=== PATIENT | male | born 1970 | race Caucasian/White ===

== ENCOUNTER 2016-12-10 20:08 | Emergency (ER) | payer MEDICAID ==
[~2016-12-10] VITALS: Ht 190.5 cm; Wt 120.1 kg
[~2016-12-10 20:08] MED LIST: IBUP-238 PO; PERC5TAB12 PO
[2016-12-10 20:12] VITALS: BP 196/102; PULSE 58; RESP 18; TEMP 98.9; O2SAT 100
[2016-12-10] MEDS ORDERED: PROPARACAINE HCL 0.5% OPHT SOLN 15 ML BTL RIGHT EYE ONE (20:30)
--- NOTE | 2016-12-10 20:31 | PD ---
HPI Chief Complaint: Eye Problems/Injury Time Seen by Provider: 20:30 Travel History International Travel<30 days: No Contact w/Intl Traveler<30days: No Traveled to known affect area: No History of Present Illness HPI 46-year-old male presents to the emergency room for evaluation of right eye pain , redness, and tearing for the past several hours. Patient states around 5 hours ago, he was using the weed-kelli when a vine flung up around his glasses and struck him in the right eye. He showered afterward but denies flushing the in the shower or afterwards with saline. Since then, the eye has been getting continuously more painful and more red. Pain is improved with applying pressure and rubbing the eye. Now he has associated photophobia. Denies drainage. Patient does not wear contacts. 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,4,5,S1 DISC INJURIES.) Neurologic: No Psychiatric: No Reproductive: No Respiratory: No Immunizations Current: Yes Myocardial Infarction: No Radiation Therapy: No Renal Failure: No Seizures: No Sleep Apnea: No Thyroid Disease: No Ulcer: No Tetanus Vaccination: > 5 Years Influenza Vaccination: No Past Surgical History Abdominal Surgery: Yes (APPENDECTOMY) AICD: No Appendectomy: Yes Cholecystectomy: Yes Genitourinary Surgery: No Pacemaker: No Other Surgery: Yes (NASAL SURGERY IN JANUARY 2008) Social History Alcohol Use: Yes (Occ.) Tobacco Use: No Substance Use: No Allergies-Medications (Allergen,Severity, Reaction): Coded Allergies: No Known Allergies (Verified , 12/10/16) Reported Meds & Prescriptions Reported Meds & Active Scripts Active Erythromycin Opth Oint 5 Mg/Gm Oint 1 Applic RIGHT EYE Q6HR Review of Systems Except as stated in HPI: all other systems reviewed are Neg Physical Exam Narrative GENERAL: Well-nourished, well-developed male in no acute distress. Afebrile. Ambulatory. SKIN: Warm and dry. HEAD: Normocephalic. EYES: PERRL, EOMI, no discharge. No scleral icterus. Mild to moderate tearing. Moderate injection in the right. No chemosis. Fluorescein staining reveals a 2-3 square corneal abrasion at the 10:00 position of the right eye. Negative Stephy sign. No foreign body appreciated. Visual acuity is 20/40 in the right and 20/30 in the left. Mild to moderate photophobia. Data Data Last Documented VS Vital Signs Date Time Temp Pulse Resp B/P Pulse Ox O2 Delivery O2 Flow Rate FiO2 12/10/16 20:12 98.9 58 18 196/102 100 Orders Proparacaine 0.5% Opth Soln (Alcaine 0.5 (12/10/16 20:30) MDM Medical Decision Making Medical Screen Exam Complete: Yes Emergency Medical Condition: Yes Medical Record Reviewed: Yes Differential Diagnosis Corneal abrasion versus ulceration versus foreign body Narrative Course 46-year-old male presents to the emergency room for evaluation of right eye pain , redness, and foreign body sensation for the past several hours. Patient was scratched by a vine 5 hours prior to arrival. He did not flush his eye. Physical exam reveals PERRL, EOMI, no discharge. Moderate injection in the right. Fluorescein staining reveals a 2-3 square corneal abrasion at the 10:00 position of the right eye. Negative Stephy sign. No foreign body appreciated. Visual acuity is 20/40 in the right and 20/30 in the left. Mild to moderate photophobia. After administering proparacaine, patient reports marked improvement in visual acuity. He'll be discharged with prescription for erythromycin eye ointment and told to follow up with a lodging facilities attendant if symptoms persist after 3 days. Told to return sooner for worsening symptoms. He understands and agrees to this plan. Patient has history of hypertension. He was counseled on hypertension management told to follow up with the community [facility] for long-term care/management. Diagnosis Primary Impression: Injury of conjunctiva and corneal abrasion of right eye without foreign body Qualified Code: S05.01XA - Injury of conjunctiva and corneal abrasion of right eye without foreign body, initial encounter Referrals: [facility] Patient Instructions: Corneal Abrasion (ED), General Instructions Additional Instructions: Rest and drink plenty of fluids. Do not rub your eye as this will worsen your symptoms. Use ointment as directed, for 3-5 days. Follow-up with an lodging facilities attendant. Return to the emergency room for worsening symptoms. Med/Other Pt SpecificInfo: Prescription(s) given Scripts Erythromycin Opth Oint 5 Mg/Gm Oint1 Applic RIGHT EYE Q6HR #1 TUBE Ref 0 Prov:Raysa Schumacher MD 12/10/16 Disposition: 01 DISCHARGE HOME Condition: Stable Fatuma Felix Dec 10, 2016 20:31
[2016-12-10] MEDS ORDERED: ERYTOIN10 RIGHT EYE (20:45)
== END 2016-12-10 21:05 | disposition home or self-care (01) ==
LOC: PHEFT 20:08
DX: S05.01XA Injury of conjunctiva and corneal abrasion without foreign body, right eye, initial encounter (principal); I10 Essential (primary) hypertension; Y93.H2 Activity, gardening and landscaping
CPT/HCPCS: 99283

== ENCOUNTER 2017-09-07 22:31 | Observation (INO) | payer MEDICAID ==
[~2017-09-07] VITALS: Ht 190.5 cm; Wt 125.0 kg
[2017-09-07] VITALS (9 sets, daily range): BP systolic 140–203; BP diastolic 60–110; PULSE 54–68; RESP 16–18; TEMP 98; O2SAT 95–100
[~2017-09-07 22:31] MED LIST changes: +ERYTOIN10 RIGHT EYE; -IBUP-238 PO; -PERC5TAB12 PO
[2017-09-07] MEDS ORDERED: LISI10TA3 PO (22:44)
[2017-09-07] MEDS ORDERED: ASPIRIN 325 MG TAB PO ONE (22:45)
[2017-09-07] MEDS ORDERED: SODIUM CHLORIDE 0.9% FLUSH 10 ML FLUSH IVF PRN (22:45)
[2017-09-07] MEDS ORDERED: MORPHINE SULFATE 4 MG/ML INJ IV PUSH ONE (22:45)
[2017-09-07] MEDS ORDERED: NITROGLYCERIN 2% OINT 1 GM PACKET TOP ONE (22:45)
[2017-09-07] MEDS ORDERED: NITROGLYCERIN 0.4 MG SL 25 TABS/BTL SL ONE (22:45)
[2017-09-07] MEDS ORDERED: ONDANSETRON HCL 4 MG/2 ML VIAL IV PUSH ONE (22:45)
--- NOTE | 2017-09-07 22:48 | PD ---
HPI Chief Complaint: Chest Pain Time Seen by Provider: 22:41 Travel History International Travel<30 days: No Contact w/Intl Traveler<30days: No Traveled to known affect area: No History of Present Illness HPI This 47-year-old male is complaining of precordial chest pain. Says the pain started around 5:00. Since it started this coming and going. It woke him a few minutes and then subside. He has had pain like this in the past but has not been evaluated for it. He says the last time he had. He took a shower at home and seemed to get worse in the shower. He does feel a little bit short of breath. He does have some pain in his left arm. He says it is a pressure type of pain. He says he feels like an elephant is sitting on his chest. He does occasionally get exertional chest pain. He has a history of hypertension and takes lisinopril once daily. He is does not smoke. There is no family history of heart disease. He has had an appendectomy and cholecystectomy as well as a back fusion. He does not take aspirin. 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,4,5,S1 DISC INJURIES.) Neurologic: No Psychiatric: No Reproductive: No Respiratory: No Immunizations Current: Yes Myocardial Infarction: No Radiation Therapy: No Renal Failure: No Seizures: No Sleep Apnea: No Thyroid Disease: No Ulcer: No Past Surgical History Abdominal Surgery: Yes (APPENDECTOMY) AICD: No Appendectomy: Yes Cholecystectomy: Yes Genitourinary Surgery: No Pacemaker: No Other Surgery: Yes (NASAL SURGERY IN JANUARY 2008) Social History Alcohol Use: Yes (Occ.) Tobacco Use: No Substance Use: No Allergies-Medications (Allergen,Severity, Reaction): Coded Allergies: No Known Allergies (Verified , 12/10/16) Reported Meds & Prescriptions Reported Meds & Active Scripts Active Reported Lisinopril 10 Mg Tab 10 Mg PO DAILY Review of Systems General / Constitutional: No: Fever, Chills Eyes: No: Diploplia, Blurred Vision HENT: No: Headaches, Vertigo Cardiovascular: No: Chest Pain or Discomfort, Palpitations Respiratory: No: Cough, Shortness of Breath Gastrointestinal: No: Nausea, Vomiting Genitourinary: No: Urgency, Frequency Musculoskeletal: No: Myalgias, Arthralgias Skin: No Rash, No Itching Neurologic: No: Weakness, Dizziness Psychiatric: No: Anxiety, Depression Endocrine: No: Heat Intolerance, Cold Intolerance Hematologic/Lymphatic: No: Easy Bruising Physical Exam Narrative GENERAL: Well-developed male SKIN: Focused skin assessment warm/dry. HEAD: Atraumatic. Normocephalic. EYES: Pupils equal and round. No scleral icterus. No injection or drainage. ENT: No nasal bleeding or discharge. Mucous membranes pink and moist. NECK: Trachea midline. No JVD. CARDIOVASCULAR: Regular rate and rhythm. No murmur appreciated. RESPIRATORY: No accessory muscle use. Clear to auscultation. Breath sounds equal bilaterally. GASTROINTESTINAL: Abdomen soft, non-tender, nondistended. Hepatic and splenic margins not palpable. MUSCULOSKELETAL: No obvious deformities. No clubbing. No cyanosis. No edema. NEUROLOGICAL: Awake and alert. No obvious cranial nerve deficits. Motor grossly within normal limits. Normal speech. PSYCHIATRIC: Appropriate mood and affect; insight and judgment normal. Data Data Last Documented VS Vital Signs Date Time Temp Pulse Resp B/P (MAP) Pulse Ox O2 Delivery O2 Flow Rate FiO2 09/07/17 23:15 65 18 167/84 (111) 100 Room Air 09/07/17 22:46 98.0 Orders Orders Basic Metabolic Panel (Bmp) (09/07/17 22:41) Complete Blood Count With Diff (09/07/17 22:41) Magnesium (Mg) (09/07/17 22:41) Prothrombin Time / Inr (Pt) (09/07/17 22:41) Act Partial Throm Time (Ptt) (09/07/17 22:41) Troponin I (09/07/17 22:41) Chest, Single Ap (09/07/17 22:41) Ecg Monitoring (09/07/17 22:41) Bilateral Bp Monitoring (09/07/17 22:41) Iv Access Insert/Monitor (09/07/17 22:41) Oximetry (09/07/17 22:41) Oxygen Administration (09/07/17 22:41) Aspirin (Aspirin) (09/07/17 22:45) Morphine Inj (Morphine Inj) (09/07/17 22:45) Nitroglycerin 2% Oint (Nitroglycerin 2% (09/07/17 22:45) Sodium Chloride 0.9% Flush (Ns Flush) (09/07/17 22:45) Nitroglycerin Sl (Nitrostat Sl) (09/07/17 22:45) Ondansetron Inj (Zofran Inj) (09/07/17 22:45) Morphine Inj (Morphine Inj) (09/07/17 23:30) Labs Laboratory Tests Test 09/07/17 22:10 White Blood Count 9.1 TH/MM3 Red Blood Count 5.33 MIL/MM3 Hemoglobin 15.0 GM/DL Hematocrit 45.5 % Mean Corpuscular Volume 85.4 FL Mean Corpuscular Hemoglobin 28.2 PG Mean Corpuscular Hemoglobin Concent 33.0 % Red Cell Distribution Width 12.2 % Platelet Count 240 TH/MM3 Mean Platelet Volume 8.4 FL Neutrophils (%) (Auto) 55.6 % Lymphocytes (%) (Auto) 30.0 % Monocytes (%) (Auto) 7.9 % Eosinophils (%) (Auto) 5.7 % Basophils (%) (Auto) 0.8 % Neutrophils # (Auto) 5.1 TH/MM3 Lymphocytes # (Auto) 2.7 TH/MM3 Monocytes # (Auto) 0.7 TH/MM3 Eosinophils # (Auto) 0.5 TH/MM3 Basophils # (Auto) 0.1 TH/MM3 CBC Comment DIFF FINAL Differential Comment Prothrombin Time 10.4 SEC Prothromb Time International Ratio 0.9 RATIO Activated Partial Thromboplast Time 27.0 SEC Blood Urea Nitrogen 21 MG/DL Creatinine 1.40 MG/DL Random Glucose 100 MG/DL Calcium Level 8.7 MG/DL Magnesium Level 2.3 MG/DL Sodium Level 138 MEQ/L Potassium Level 3.9 MEQ/L Chloride Level 104 MEQ/L Carbon Dioxide Level 28.7 MEQ/L Anion Gap 5 MEQ/L Estimat Glomerular Filtration Rate 55 ML/MIN Troponin I LESS THAN 0.02 NG/ML MDM Medical Decision Making Medical Screen Exam Complete: Yes Emergency Medical Condition: Yes Medical Record Reviewed: Yes Differential Diagnosis Differential includes unstable angina, coronary artery disease, GERD, hypertension Narrative Course This gentleman'S pain is very concerning for coronary artery disease. His EKG shows normal sinus rhythm. He has been given aspirin, Nitropaste and morphine. His blood pressure is initially quite elevated about 200/100. He was given nitroglycerin and nitro paste his blood pressures come down. He did have an episode of for recurrence of pain. The pain was on the left side was quite severe. It lasted for about a minute. Repeat EKG done during this pain is normal. His troponin is normal. He will be admitted to the chest pain center Diagnosis Primary Impression: Chest pain Admitting Information Admitting Physician Requests: Observation Santosh Mancilla MD Sep 07, 2017 22:48
[2017-09-07 22:55] LABS: AUTOMATED NEUTROPHIL # 5.1 TH/MM3 (1.8-7.7); BASOPHIL # 0.1 TH/MM3 (0-0.2); BASOPHIL % 0.8 % (0.0-2.0); EOSINOPHIL # 0.5 TH/MM3 (0-0.4); EOSINOPHIL % 5.7 % (0.0-4.0); HEMATOCRIT 45.5 % (39.0-51.0); HEMO FLAGS DIFF FINAL; LYMPHOCYTE # 2.7 TH/MM3 (1.0-4.8); MEAN CELL VOLUME 85.4 FL (80.0-100.0); MEAN CORPUSCULAR HEMOGLOBIN 28.2 PG (27.0-34.0); MONO % 7.9 % (0.0-8.0); NEUT % 55.6 % (16.0-70.0); PLATELET COUNT 240 TH/MM3 (150-450); RED BLOOD COUNT 5.33 MIL/MM3 (4.50-5.90); RED CELL DISTRIBUTION WIDTH 12.2 % (11.6-17.2); WHITE BLOOD COUNT 9.1 TH/MM3 (4.0-11.0)
--- NOTE | 2017-09-07 23:03 | RADRPT ---
EXAM DATE/TIME: 09/07/2017 22:50 [facility] COMPARISON: No previous studies available for comparison. INDICATIONS : Chest pain, shortness of breath. MEDICAL HISTORY : Hypertension. SURGICAL HISTORY : None. ENCOUNTER: Initial ACUITY: 1 day PAIN SCORE: 3/10 LOCATION: Bilateral chest FINDINGS: A single view of the chest demonstrates the lungs to be symmetrically aerated without evidence of mas s, infiltrate or effusion. The cardiomediastinal contours are unremarkable. Osseous structures are intact. CONCLUSION: No acute disease. Kendall Davis MD on September 07, 2017 at 23:02 Board Certified Radiologist. This report was verified electronically.
[2017-09-07 23:12] LABS: CHLORIDE 104 MEQ/L (98-107); POTASSIUM 3.9 MEQ/L (3.5-5.1); SODIUM (NA) 138 MEQ/L (136-145)
[2017-09-07 23:14] LABS: INTERNATIONAL NORMALIZED RATIO 0.9 RATIO; PROTHROMBIN TIME - PATIENT 10.4 SEC (9.8-11.6)
[2017-09-07 23:15] LABS: ANION GAP 5 MEQ/L (5-15); BICARBONATE 28.7 MEQ/L (21.0-32.0); BLOOD UREA NITROGEN 21 MG/DL (7-18); MAGNESIUM 2.3 MG/DL (1.5-2.5)
[2017-09-07 23:18] LABS: GLOMERULAR FILTRATION RATE 55 ML/MIN (>89)
[2017-09-07] MEDS ORDERED: MORPHINE SULFATE 8 MG/ML INJ IV PUSH ONE (23:30)
[2017-09-08] VITALS (7 sets, daily range): BP systolic 124–139; BP diastolic 57–83; PULSE 45–53; RESP 18–19; TEMP 96.1–98; O2SAT 96–99
[2017-09-08] MEDS ORDERED: ACETAMINOPHEN 325 MG TAB PO ONE ×2 (02:00→09:00)
[2017-09-08] MEDS ORDERED: ACETAMINOPHEN 500 MG CPLT PO PRN (02:15)
[2017-09-08] MEDS ORDERED: ACETAMINOPHEN/HYDROcodone 325 MG/7.5 MG TAB PO PRN (02:15)
[2017-09-08] MEDS ORDERED: MORPHINE SULFATE 4 MG/ML INJ IV PUSH PRN (02:15)
[2017-09-08] MEDS ORDERED: NITROGLYCERIN 0.4 MG SL 25 TABS/BTL SL PRN (02:15)
[2017-09-08] MEDS ORDERED: SODIUM CHLORIDE 0.9% FLUSH 10 ML FLUSH IV FLUSH PRN (02:15)
[2017-09-08] MEDS ORDERED: ONDANSETRON HCL 4 MG/2 ML VIAL IV PUSH PRN (02:15)
[2017-09-08 03:14] LABS: CREATINE KINASE 435 U/L (39-308)
[2017-09-08 03:26] LABS: CKMB 4.5 NG/ML (0.5-3.6)
[2017-09-08 06:47] LABS: CREATINE KINASE 389 U/L (39-308)
[2017-09-08 07:00] LABS: CKMB 4.6 NG/ML (0.5-3.6)
[2017-09-08 08:18] LABS: POTASSIUM 4.1 MEQ/L (3.5-5.1)
[2017-09-08 08:20] LABS: BICARBONATE 27.4 MEQ/L (21.0-32.0)
[2017-09-08] MEDS ORDERED: SODIUM CHLORIDE 0.9% FLUSH 10 ML FLUSH IV FLUSH SCH (09:00)
[2017-09-08] MEDS ORDERED: ASPIRIN 325 MG TAB PO SCH (09:00)
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
[2017-09-08] MEDS: SODIUM CHLOR 0.9% 1000 ML INJ 1,000 ML IV SCH ×2 (09:30→10:55)
[2017-09-08] MEDS ORDERED: cloNIDine HCL 0.1 MG TAB PO PRN (10:15)
--- NOTE | 2017-09-08 12:15 | RADRPT ---
EXAM DATE/TIME: 09/08/2017 10:45 [facility] COMPARISON: No previous studies available for comparison. INDICATIONS : Substernal chest pain with dyspnea. Angina. DOSE: 35 mCi Tc99m Myoview at stress. 11 mCi Tc99m Myoview at rest. 0.4 mg Lexiscan STRESS SYMPTOMS: Dyspnea. EJECTION FRACTION: 42% MEDICAL HISTORY : Hypertension. Stroke SURGICAL HISTORY : Appendectomy. Cholecystectomy. ENCOUNTER: Initial ACUITY: 1 day PAIN SCALE: 8/10 LOCATION: Substernal chest TECHNIQUE: The patient underwent pharmacologic stress with infusion of prescribed dose. Continuous ECG tracing was monitored during stress. Gated SPECT imaging was performed after stress and conventional SPECT i maging was performed at rest. The examination was performed on a SPECT/CT scanner, both attenuation and non-corrected datasets were reviewed. FINDINGS: DISTRIBUTION: The maximum perfused segment at stress is in the anterior lateral wall. PERFUSION STUDY: The pattern of perfusion at stress suggests a small area of perfusion defect at the junction of the l ateral and inferior egan with questionable redistribution GATED STUDY: There is intact wall motion and thickening without hypokinetic or dyskinetic segments. CONCLUSION: Ejection fraction diminished at 42%. Suggestion of a small area of perfusion defect at str ess at the junction of the inferior and lateral wall with questionable minimal redistribution. RISK CATEGORY: Intermediate (1-3% Annual Mortality Rate) Tristen Bowen MD on September 08, 2017 at 12:11 Board Certified Radiologist. This report was verified electronically.
[2017-09-08] MEDS ORDERED: HEPARIN-NS/PF INJ 1,000 ML ONE (16:20)
[2017-09-08 16:37] LABS: HDL CHOLESTEROL 40.1 MG/DL (40.0-60.0)
[2017-09-08] MEDS ORDERED: VERAPAMIL HCL 5 MG/2 ML VIAL ONE (16:39)
[2017-09-08] MEDS ORDERED: NITROGLYCERIN INJ 5 ML ONE (16:39)
[2017-09-08] MEDS ORDERED: MIDAZOLAM HCL 2 MG/2 ML VIAL ONE (16:39)
[2017-09-08] MEDS ORDERED: HEPARIN SODIUM - IV 10,000 UNITS/10 ML VIAL ONE (16:40)
--- NOTE | 2017-09-08 16:55 | MB ---
cc: SANJEEV BAUMAN DATE OF CONSULTATION 09/08/2017 INDICATION Chest pain. HISTORY OF THE PRESENT ILLNESS He is a 47-year-old gentleman with a history of hypertension. No prior history of heart disease. He presented to the emergency room with substernal chest pain radiating towards his left shoulder associated with diaphoresis, primarily initially occurred with exertion. He had recurrence of the episode. He came into [facility]. There he was found to have no significant ischemic change in the EKG and troponin was negative. He underwent stress test which was intermediate risk and transferred over for cardiac catheterization to the Main [facility]. PAST MEDICAL HISTORY 1. Hypertension. 2. Syncope. 3. Disk injury. MEDICATIONS Lisinopril. ALLERGIES NO KNOWN DRUG ALLERGIES. FAMILY HISTORY Denies any family history of early coronary artery disease or sudden cardia . SOCIAL HISTORY Denies any alcohol, tobacco or drug use. REVIEW OF SYSTEMS 12-point review of system was performed and negative unless otherwise noted in the history of present illness. PHYSICAL EXAMINATION VITAL SIGNS: Temperature is 98, pulse 52, blood pressure 124/81 mmHg. GENERAL: Alert and oriented times three in no acute distress. HEENT: Exam shows pupils reactive to light and accommodation. Extraocular movements are intact. NECK: No elevation in the jugular venous distention. No thyromegaly. No lymphadenopathy. No carotid bruits. LUNGS: Clear to auscultation bilaterally. CARDIOVASCULAR: Regular rate and rhythm without murmurs, rubs, or gallops. ABDOMEN: Nontender. Nondistended. Good bowel sounds. No hepatosplenomegaly. EXTREMITIES: Show no clubbing, cyanosis or edema. Good peripheral pulses. NEUROLOGIC: Cranial nerves intact. Motor strength is grossly intact. LABORATORY DATA WBC 9.1, hemoglobin 15, platelet count 240. INR is 0.9. Sodium 138, potassium 4.1. Troponin negative times two. ASSESSMENT 1. Unstable angina. 2. Hypertension. PLAN The patient has somewhat suggestive symptoms but also now has intermediate risk stress test with moderate perfusion abnormality. He is sent over for cardiac catheterization. Risks, benefits and alternatives discussed with the patient. He is agreeable. We will proceed. MD CAMDEN Chanel/SOBEIDA /4:29 PM /4:36 PM
--- NOTE | 2017-09-08 17:25 | CATHPROC ---
[facility] HIS Report Study Information Study Number Admission Scheduled Start Study Start [id number] Sep 07 2017 11:45PM 09/08/2017 Sep 08 2017 4:16PM [place] Service Cardiac Catheterization Admit Source Facility Department Other [facility] - [employer] Physician and Clinical Staff Initial Abraham Shelby Depot ManagerAmbika Richards,RN Depot Manager Mckenzie Thomason,JESSICA Recorder Josfe Marino RCIS(BS) Scrub Durga, Kasey,SOUND TESTER TECH2 Procedures Performed Procedure Location (Site) Vessel Name Angiogram LV LV Ventricle Coronary Angiograms LCA Left Coronary Coronary Angiograms RCA Right Coronary L Heart Cath Wire insertion Radial (right) Radial Art. Equipment Time Putaway Driver Description Size Mfg Part Number Used/Scraped TRANSDUCER, TRUWAVE [id number] 16:29 BARNARD RODRIGEZ * Used W/STOCKCOCK *[id number] *[id number] *[id number] PIGTAIL ANG. 145 INFINITI [id number] CATHETER *[id number] 16:29 [employer] PACK, CCL CUSTOM * Used *[id number] 16:29 [employer] SUPPORT, ARTERIAL ADULT [id number] *[id number] Used [id number] 16:29 SpotRight PACER PEN, SKIN DUAL W/ RULER * Used *[id number] BAND, RADIAL COMPRESSION TR [id number] 17:07 Gridcentric 29CM Used LARGE 29 *[id number] SHEATH, FR6 RADIAL PRELUDE 16:29 Gridcentric FR 6 [id number] Used EASE 11CM [id number] 16:29 Gridcentric WIRE, EXCHANGE 260CM 3MMJ 260CM Used *[id number] 17:04 NAMIC TUBING, HIGH PRESSURE 48" 48" Used *[id number] 17:03 NAMIC TUBING, HIGH PRESSURE 48" 48" Used *[id number] 16:29 NYCOMED OMNIPAQUE, 350 MG, 150ML 150ML [id number] Used [id number] 16:29 Addy BLANKET,WARM AIR CCL * Used *[id number] History: Allergies Allergy Reaction No Known Allergies History: Risk Factors Family History of Hypertension Dyslipidemia Previous MA Previous Heart Failure Premature CAD Yes Yes No No No Prior Valve Prior PCI Prior CABG Surgery No No No Cerebrovascular Peripheral Artery Chronic Lung On Dialysis Diabetes Disease Disease Disease No No No No No History: Symptoms/Diagnosis Selection Items Chest pain History: Stress Tests Stress or Imaging Studies Performed Yes Standard Exercise Stress Test No Stress Test SPECT Stress Test SPECT Result Stress Test SPECT Ischemia Risk/Extent Yes Positive Intermediate Stress Test CMR No Cardiac CTA Coronary Calcium Score No No History: Other Current Smoker No Labs Hgb (g/dl) Hct (%) RBC (MIL/MM3) WBC (l/cumm) Platelets (thousands) 11.60-17.00 35.00-51.00 4.00-5.90 4.00-11.00 150.00-450.00 15.0 45 5.3 9.1 240 Glucose (mg/dl) BUN (mg/dl) Creatinine (mg/dl) BUN:Creatinine (1:x) 74.00-106.00 7.00-18.00 0.50-1.30 10.00-20.00 106 21 1.3 16.2 Na (meq/l) K (meq/l) 136.00-145.00 3.50-5.10 138 3.9 PT (sec) 9.80-11.60 10.4 Troponin I (ng/ml) CPK (u/l) CPK-MB (ng/ML) 0.02-0.05 26.00-308.00 0.50-3.60 0.02 435 4.6 Medication Medication Total Dose (Bolus/Oral) Medication Total Dosage/Unit 1% XYLOCAINE 20 mL FENTANYL 50 mcg HEPARIN 5000 units NTG (IC) 200 mcg VERSED 2 mg Medications (Bolus/Oral) Medication Time Given Dosage/Unit Administered By Reason VERSED 09/08/2017 4:49:35 PM 2 mg Ambika Matta 2 mg VERSED given in lab by Ambika Matta RN via Peripheral IV. FENTANYL 09/08/2017 4:51:07 PM 50 mcg Yani Mattat 50 mcg FENTANYL given in lab by Ambika Matta RN via Peripheral IV. 1% XYLOCAINE 09/08/2017 4:52:31 PM 20 mL Abraham Flores 20 mL 1% XYLOCAINE given in lab by Abraham Flores in Right Wrist via Subcutaneous. NTG (IC) 09/08/2017 4:54:57 PM 200 mcg Ambika Matta 200 mcg NTG (IC) given in lab by Ambika Matta, JESSICA via Intra-coronary. HEPARIN 09/08/2017 4:55:37 PM 5000 units Ambika Matta 5000 units HEPARIN given in lab by Ambika Matta RN via Peripheral IV. Medication (Drip) Medication Time Given Dosage/Unit Concentration/Unit Diluent (ml) Solution IV Solutions 09/08/2017 4:30:19 PM 50 mL (IV) 500 NaCl .9 Patient arrived on IV Solutions via Peripheral IV. Pump/Drip Flow using NaCl .9. Initial Case Assessment Cardiovascular HR 65 Edema Present Skin color Skin None Normal Warm Dry Circulatory - Right Pulses Dorsalis Pedis Femoral Radial 2 2 2 Scale (0,1,2,3,4,d) Circulatory - Left Pulses Dorsalis Pedis Femoral Radial 2 2 2 Scale (0,1,2,3,4,d) Circulatory - Lower Extremities Color Lower Right Color Lower Left Normal Normal Neurological State Oriented to time-place- Alert Moves all extremities person Respiration - General Respiration Rate O2 (lpm) (B/min) 10 0 Chronological Log Time Study Chronological Log 16:28:52 Patient arrived via Bed. 16:28:53 Patient Name, D.O.B, / Armband Verified By R.N. 16:28:54 Consent signed by the physician and the patient and verified by the [employer] staff. 16:29:03 Verbal Stimulation=2 Physical Stimulation=2 Airway=2 Respiration=2 TOTAL=8. (0=absent, 1=li mited, 2=present) 16:29:57 A # 20 IV was noted in the Antecubital (left). Grade = 0 16:30:19 Patient arrived on IV Solutions via Peripheral IV. Pump/Drip Flow using NaCl .9. 16:31:15 History and physical on the chart or being dictated. Assessment: Initial Case, HR=65 BPM, Edema=None, Color=Normal, Skin = Warm, Dry Right Pulses: Jv Ped=2, Femoral=2, Radial=2 Left Pulses: Jv Ped=2, Femoral=2, Radial=2 16:31:35 Lower Right Extremities: Color=Normal Lower Left Extremities: Color=Normal Neurological: State=Alert, Ox3, NASH Respiration: Resp=10 B/min, O2=0 lpm Vitals capture started with the following parameters, Patient=Adult, Interval=5 min, Initial Pr ldefcp=530 mmHg, 16:35:29 Deflation Rate=5 mmHg, Cuff placed on Right Arm 16:36:55 HR=56 bpm, KCXZ=693/111 mmhg, BqI5=134.0 %, Resp=20 B/min, Pain=0, Libia=10, Gillis=2 16:37:45 Allens test performed on the right radial and ulnar artery. 16:39:20 Right Radial and groin(s) prepped with 2% chlorhexidine, and draped after a 3 min. waiting time. 16:40:56 MD arrived. 16:41:24 HR=64 bpm, VQEA=927/106 mmhg, XvW4=910.0 %, Resp=22 B/min, Pain=0, Libia=10, Gillis=2 16:42:58 Pressure channel 1 zeroed. 16:43:06 Reference ECG taken 16:46:55 HR=61 bpm, WCSE=440/100 mmhg, JjN5=610.0 %, Resp=20 B/min, Pain=0, Libia=10, Gillis=2 16:49:35 2 mg VERSED given in lab by Ambika Matta RN via Peripheral IV. 16:51:07 50 mcg FENTANYL given in lab by Ambika Matta RN via Peripheral IV. 16:51:18 HR=69 bpm, MQCH=834/89 mmhg, SpO2=97.0 %, Resp=19 B/min, Pain=0, Libia=10, Gillis=2 Time Out. Correct patient, correct procedure, correct physician, power injector not loaded with contrast with surgical 16:51:40 team present. Time Out Concurred by MD and individual staff in procedure. 16:51:41 Case Start 16:52:31 20 mL 1% XYLOCAINE given in lab by Abraham Flores in Right Wrist via Subcutaneous. 16:53:27 Access site was Brachial Artery. 16:54:57 200 mcg NTG (IC) given in lab by Ambika Matta, JESSICA via Intra-coronary. 16:55:37 5000 units HEPARIN given in lab by Ambika Matta, JESSICA via Peripheral IV. 16:56:11 HR=65 bpm, DDXI=183/98 mmhg, SpO2=97.0 %, Resp=18 B/min, Pain=0, Libia=10, Gillis=2 A SHEATH, FR6 RADIAL PRELUDE EASE 11CM FR 6 was advanced into the Radial (right) using the Perc utaneous 16:57:54 technique. A JR 5.0 INFINITI CATHETER FR 6 was advanced over a wire. OMNIPAQUE, 350 MG, 150ML 150ML was us ed for 16:58:48 injections. 16:59:12 A WIRE, EXCHANGE 260CM 3MMJ 260CM was inserted via Radial (right). 16:59:35 The RCA was injected and visualized at various angles. OMNIPAQUE, 350 MG, 150ML 150ML used . 17:00:04 Catheter was removed A JL 3.5 INFINITI CATHETER FR 6 was advanced over a wire. OMNIPAQUE, 350 MG, 150ML 150ML was us ed for 17:00:08 injections. 17:00:32 injector was loaded by Ambika Matta RN 17:01:14 SQ=131 bpm, QALI=972/96 mmhg, SpO2=96.0 %, Resp=16 B/min, Pain=0, Libia=10, Gillis=2 Recorded Pressure: LV, LZ=769, Condition=Condition 1 17:01:21 (Left Ventricle) LV 133/51/41 Recorded Pressure: Ao, HR=67, Condition=Condition 1 17:02:04 (Aorta) Ao 128/79/101 17:02:54 The LCA was injected and visualized at various angles. OMNIPAQUE, 350 MG, 150ML 150ML use d. After removing the current catheter a PIGTAIL ANG. 145 INFINITI CATHETER FR 6 was advanced ove r a WIRE, 17:04:38 EXCHANGE 260CM 3MMJ 260CM. 17:06:15 HR=62 bpm, YFAF=883/90 mmhg, SpO2=97.0 %, Resp=29 B/min, Pain=0, Libia=10, Gillis=2 17:08:27 Catheter was removed A JL 3.5 INFINITI CATHETER FR 6 was advanced over a wire. OMNIPAQUE, 350 MG, 150ML 150ML was u sed for 17:09:40 injections. After removing the current catheter a PIGTAIL ANG. 145 INFINITI CATHETER FR 6 was advanced ove r a WIRE, 17:11:20 EXCHANGE 260CM 3MMJ 260CM. 17:11:49 HR=69 bpm, ULPS=851/86 mmhg, SpO2=97.0 %, Resp=30 B/min, Pain=0, Libia=10, Gillis=2 17:12:03 The LV was injected at 10 cc/sec for a total of 30. OMNIPAQUE, 350 MG, 150ML 150ML used. 17:13:17 Catheter was removed 17:13:39 Case End Radial Compression Device Used. 15 mLs of air placed in BAND, RADIAL COMPRESSION TR LARGE 29 2 9CM. Affected 17:14:21 hand 98 % O2 saturation. 17:16:21 HR=62 bpm, XLTP=309/82 mmhg, SpO2=99.0 %, Resp=22 B/min, Pain=0, Libia=10, Gillis=2 17:24:09 No case complications noted. 17:24:21 A Left Heart Cath was performed. 17:24:23 Patient moved to [facility] End Study - Contrast Media Used In Study Contrast Total Opened (mL) Total Used (mL) Total Wasted (mL) Omnipaque 80 80 0 End Study - Maximum Contrast Load Max Contrast Load (mL) 480.8 End Study - Radiation Exposure Fluoro Time (minutes) 6.2 End Study - Patient Disposition Complications Transferred To Telemetry Bed
[2017-09-08] MEDS ORDERED: MISC INFORMATION XX ONE (17:30)
[2017-09-08] MEDS ORDERED: BACITRACIN OINT 0.9 GM PKT TOP ONE (17:30)
[2017-09-08] MEDS ORDERED: LISI-515 PO (18:08)
--- NOTE | 2017-09-08 18:09 | HHI.DCPOC ---
Discharge Care Plan Diagnosis: (1) Chest pain (2) Hypertensive urgency (3) DARELL (acute kidney injury) (4) Elevated CK (5) Headache Your Health Problems Are: Chest Pain Goals to Promote Your Health * To prevent worsening of your condition and complications * To maintain your health at the optimal level Directions to Meet Your Goals Take your medications as prescribed Follow your dietary instruction Follow activity as directed Keep your appointments as scheduled Take your immunizations and boosters as scheduled If your symptoms worsen call your PCP, if no PCP go to Urgent Care Center or Emergency Room Smoking is Dangerous to Your Health. Avoid second hand smoke Call the 24-hour hour crisis hotline for domestic abuse at [facility] Dennison Sep 08, 2017 18:09
--- NOTE | 2017-09-08 18:29 | MA ---
cc: SANJEEV BAUMAN DATE 09/08/2017 PROCEDURES PERFORMED 1. Fluoroscopy with interpretation. 2. Coronary angiography. 3. Left heart catheterization. 4. Left ventriculography. METHOD Risks, benefits and alternatives discussed with the patient. The patient understood and consented to the procedure. PROCEDURE DETAILS The patient brought to the catheterization lab and placed on the catheterization table. The right wrist was prepped and draped in sterile fashion. The right wrist was anesthetized with 2% Lidocaine. The right radial artery was cannulated and a 6 Belarusian 7 cm sheath was placed without difficulty. LEFT HEART CATHETERIZATION Intraventricular hemodynamics measured at 135/10 mmHg. Left ventricular end diastolic pressure 10 mmHg. There was no significant aortic stenosis by transaortic valvular pullback gradient. LEFT VENTRICULOGRAPHY Left ventriculography was performed in a right anterior oblique view using a 6 Belarusian angled pigtail catheter and a 30 cc contrast injection with good opacification. Left ventricular ejection fraction visually estimated at 65% without regional wall motion abnormalities. No significant aortic stenosis by transaortic valvular pullback gradient. CORONARY ANGIOGRAPHY 1. Left main coronary is angiographically normal. 2. The left anterior descending coronary is angiographically normal. 3. 4. Right coronary is angiographically normal and dominant. CONCLUSION 1. Angiographically normal coronary arteries. 2. Normal left-sided filling pressures and left ventricular ejection fraction. This appears to be a false positive stress test. The patient can be managed conservatively. Follow up with the outpatient. May consider GI evaluation. MD CAMDEN Chanel/SOBEIDA /5:17 PM /6:00 PM
[2017-09-08] MEDS ORDERED: IOHEXOL 350 MG/ML 100 ML BTL (for Cath Lab) OTHER ONE (20:59)
[2017-09-08] MEDS ORDERED: LISINOPRIL 10 MG TAB PO SCH (21:00)
[2017-09-08] MEDS ORDERED: REGADENOSON INJ 0.4 MG/5 ML SYR IV ONE (23:46)
--- NOTE | 2017-09-09 07:17 | TR ---
Date Performed: 09/08/2017 Time Performed: 11:21:02 DOCTOR: Elizabeth Toussaint DRUG LIST: CLINICAL HISTORY: REASON FOR TEST: Chest pain REASON FOR ENDING: OBSERVATION: CONCLUSION: Lexiscan stress test was performed under standard four minute protocol. Radionuclid e was injected one minute prior to ending the test. No electrocardiographic abormalities were present to suggest ischemia. Nuclear imaging and interpretation are pending. COMMENTS:
--- NOTE | 2017-09-09 07:20 | EKG ---
Date Performed: 09/08/2017 Time Performed: 05:30:18 PTAGE: 47 years EKG: SINUS BRADYCARDIA POSSIBLE RIGHT VENTRICULAR CONDUCTION DELAY BORDERLINE ECG Since PREVIOUS TRACING , no significant change noted PREVIOUS TRACIN09/08/2017 03.04 DOCTOR: Elizabeth Toussaint Interpretating Date/Time 09/09/2017 07:19:34
--- NOTE | 2017-09-09 07:21 | EKG ---
Date Performed: 09/08/2017 Time Performed: 03:04:59 PTAGE: 47 years EKG: SINUS BRADYCARDIA POSSIBLE RIGHT VENTRICULAR CONDUCTION DELAY BORDERLINE ECG Since PREVIOUS TRACING , no significant change noted PREVIOUS TRACIN03/03/2009 13.10 DOCTOR: Elizabeth Toussaint Interpretating Date/Time 09/09/2017 07:19:54
--- NOTE | 2017-09-09 07:22 | EKG ---
Date Performed: 09/07/2017 Time Performed: 23:20:53 PTAGE: 47 years EKG: SINUS BRADYCARDIA BORDERLINE ECG Since PREVIOUS TRACING , no significant change noted DOCTOR: Elizabeth Toussaint Interpretating Date/Time 09/09/2017 07:20:45
== END 2017-09-08 21:00 | disposition home or self-care (01) ==
LOC: PHED 22:31 → PHEDA 23:45 → PH3B 09-08 00:49 → HDIC 09-08 18:39
PROVIDERS: ADMIT Hospitalist; ATTEND Hospitalist
DX: R07.9 Chest pain, unspecified (principal); I16.0 Hypertensive urgency; I10 Essential (primary) hypertension; I49.3 Ventricular premature depolarization; R94.31 Abnormal electrocardiogram [ECG] [EKG]; N17.9 Acute kidney failure, unspecified; Z79.82 Long term (current) use of aspirin; Z86.73 Personal history of transient ischemic attack (TIA), and cerebral infarction without residual deficits
CPT/HCPCS: 71010; 78452; 80048; 80061; 82550; 82552; 83690; 83735; 84484; 85025; 85610; 85730; 93005; 93017; 93458; 96374; 96375; 99285; A9502; C1769; C1893; G0378; J1644; J2250; J2270; J2405; J2785; J3010; J7030; Q9967